=== PATIENT | female | born 1960 | race Two or more races ===

== ENCOUNTER → 2025-05-09 | Outpatient (CLI) | payer BC, SELFPAY ==
--- NOTE | 2025-05-09 09:57 | XR_ITS ---
Examination: Lumbar spine, 5 views Technique: Lumbar spine AP, lateral, coned lateral lower lumbar spine, standing lateral flexion standing lateral extension Exam date and time: May 09, 2025, 1006 hours INDICATIONS: Low back pain radiating down the left leg 6 weeks FINDINGS: Moderate osteopenia. No lumbar fracture Minimal anterolisthesis L4 on L5 No spondylolisthesis No significant range of motion between flexion and extension IMPRESSION: No lumbar fracture No significant lumbar disc narrowing
== END | disposition home or self-care (01) ==
PROVIDERS: PCP Family Medicine; Referring Provider Orthopaedic Surgery; Visit Provider Orthopaedic Surgery
DX: M54.50 Low back pain, unspecified (principal)
CPT/HCPCS: 72110